=== PATIENT | female | born 1995 | race Two or more races ===

== ENCOUNTER 2023-08-01 19:49 | Emergency (ER) | payer OTHER ==
[~2023-08-01] VITALS: Ht 165.1 cm; Wt 54.0 kg
[2023-08-01 23:50] LABS: HEMATOCRIT 39.5 % (36.0-45.00); MEAN CELL VOLUME 81.6 fL (80.00-100.00); MEAN CORPUSCULAR HEMOGLOBIN 26.9 pg (27.00-32.0); MEAN CORPUSCULAR HGB CONC 32.9 g/dl (32.0-36.0); PLATELET COUNT 220 K/uL (150-450); RED BLOOD COUNT 4.84 M/uL (4.00-6.00); RED CELL DISTRIBUTION WIDTH 13.2 % (11.5-14.5)
[2023-08-02 00:14] LABS: ALBUMIN 3.9 gm/dL (3.4-5.0); BILIRUBIN TOTAL 0.25 mg/dL (0.3-1.2); CALCIUM 9.2 mg/dL (8.5-10.1); CREATININE SERUM 0.88 mg/dL (0.55-1.02); GFR 76.51; GLOBULINA 4.1 G/DL (2.4-3.5); POTASSIUM 3.91 mEq/L (3.5-5.1)
[2023-08-02 05:46] LABS: PH,URINE 6.5 (5.0-8.0); URINE APPEARANCE Clear; URINE BILIRRUBIN Negative (NEGATIVE); URINE BLOOD Negative; URINE COLOR Yellow; URINE GLUCOSE Negative (NEGATIVE); URINE LEUKOCYTE Negative; URINE NITRATE Negative; URINE PROTEIN Negative (NEGATIVE); URINE UROBILINOGEN 0.2 E.U./dl
[2023-08-02 05:55] LABS: INR 1.03; PARTIAL THROMBOPLASTIN TIME 26.2 SECONDS (22.0-34.0); PROTHROMBIN TIME 10.8 SECONDS (9.0-11.5)
[2023-08-02 05:56] LABS: URINE EPITHELIAL CELLS 1.3 uL (0.0-38.8); URINE RBC 1.1 uL (0.0-20.8); URINE WBC 0.6 uL (0.0-23.2)
== END 2023-08-02 10:11 | disposition home or self-care (01) ==
LOC: ER 19:50
PROVIDERS: General Practice
DX: R10.11 Right upper quadrant pain (principal)